=== PATIENT | female | born 2000 | race Caucasian/White ===

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

== ENCOUNTER 2023-03-06 16:22 | Emergency (ER) | payer BC, SELFPAY ==
[2023-03-06 17:05] VITALS: BP 108/60; PULSE 77; RESP 16; TEMP 37.3; O2SAT 100; BMI 20.5
--- NOTE | 2023-03-06 17:16 | DI.RAD.S_ITS ---
PROCEDURE: XR WRIST LT MIN 3V INDICATIONS: dog bite TECHNIQUE: 4 views of the wrist were acquired. COMPARISON: None. FINDINGS: Bones: No fractures or dislocations. No suspicious bony lesions. Scaphoid view: Intact. Soft tissues: No suspicious soft tissue calcifications. No radiopaque foreign body. IMPRESSION: No acute osseous abnormality. No radiopaque foreign body. Dictated by: Martín Galloway M.D. on 03/06/2023 at 19:33 Approved by: Martín Galloway M.D. on 03/06/2023 at 19:34
--- NOTE | 2023-03-06 17:16 | DI.RAD.S_ITS ---
PROCEDURE: XR HAND LT MIN 3V INDICATIONS: dog bite TECHNIQUE: 3 views of the hand(s) acquired. COMPARISON: None. FINDINGS: Bones: No fractures or dislocations. Carpal bones are normally aligned. No suspicious bony lesions. Soft tissues: No suspicious soft tissue calcifications. No radiopaque foreign body. A few small foci of suspected subcutaneous gas. IMPRESSION: No acute osseous abnormality. A few small foci of suspected subcutaneous gas. This is likely due to puncture/laceration. No radiopaque foreign body. Dictated by: Martín Galloway M.D. on 03/06/2023 at 19:34 Approved by: Martín Galloway M.D. on 03/06/2023 at 19:35
[2023-03-06] MEDS: TET,DIPH,PERTUSS(ACELL),VAC/PF 0.5 ML SYRINGE IM (18:52)
--- NOTE | 2023-03-06 19:03 | PC.NURSE ---
Pt soaking L hand in water and CHG
--- NOTE | 2023-03-06 19:04 | PC.NURSE ---
Small puncture wounds to top and palm of her L hand
--- NOTE | 2023-03-06 19:05 | ED.GENADULT ---
HPI - General Adult General Chief complaint: Extremity Injury, Upper Stated complaint: dog bite to left hand Time Seen by Provider: 03/06/23 18:57 Source: patient and family Mode of arrival: Ambulatory History of Present Illness HPI narrative: Patient is a 22-year-old female who is here for evaluation of a dog bite to she sustained to her right hand. She states that it was the family dog. The dog is up-to-date on immunizations. Related Data Previous Rx's Medication Instructions Recorded amoxicillin 875 mg-potassium 1 tab PO Q12H 10 days #20 tabs 03/06/23 clavulanate 125 mg tablet Allergies Allergy/AdvReac Type Severity Reaction Status Date / Time peanut Allergy Mild Diarrhea Verified 03/06/23 18:50 Review of Systems Constitutional Constitutional: Reports system reviewed and no additional complaints, except as documented Musculoskeletal Musculoskeletal: Reports system reviewed and no additional complaints, except as documented Integumentary/Breasts Skin/Breast: Reports system reviewed and no additional complaints, except as documented Neurologic Neurologic: Reports system reviewed and no additional complaints, except as documented Patient History Substance Use Type: marijuana Exam Initial Vital Signs Initial Vital Signs: Vital Signs Temperature 99.1 F 03/06/23 17:05 Pulse Rate 77 03/06/23 17:05 Respiratory Rate 16 03/06/23 17:05 Blood Pressure 108/60 03/06/23 17:05 Pulse Oximetry 100 03/06/23 17:05 Oxygen Delivery Method Room Air 03/06/23 17:05 Cardio Pulses: radial pulses present on the left Skin Other: Patient has multiple puncture wounds both on the dorsum and the volar aspect of the right hand and distal wrist. There is no active bleeding. All wounds are less than 1/2 cm in length. Neuro Sensory Exam: no sensory deficits noted Extrem Other: Patient does have some discomfort with flexion-extension of the left wrist. Course Orders Ordered: Discontinued Medications Amoxicillin/Clavulanate Potassium (Amoxicillin/Clav 875/125 Mg) 1 tab PO NOW ONE Stop: 03/06/23 19:09 Last Admin: 03/06/23 19:13 Dose: 1 tab Documented By: Bacitracin (Bacitracin Oint 0.9 Gm Pckt) 1 applic TOP NOW ONE Stop: 03/06/23 19:18 Last Admin: 03/06/23 19:21 Dose: 1 applic Documented By: Diphtheria/Tetanus/Acell Pertussis (Tet,Diph,Pertuss(Acell),Vac/Pf 0.5 Ml Syringe) 0.5 ml IM .ONCE ONE Stop: 03/06/23 17:18 Last Admin: 03/06/23 18:52 Dose: 0.5 ml Documented By: AMU Vital Signs Vital signs: Vital Signs - 8 hr 03/06/23 19:20 Pulse Rate 68 Respiratory Rate 16 Blood Pressure 124/58 L Pulse Oximetry 100 Oxygen Delivery Method Room Air Medical Decision Making Imaging Data Extremity x-ray #1: Radiologist's Impression: PROCEDURE:? XR HAND LT MIN 3V ? INDICATIONS:? dog bite ? TECHNIQUE:? 3 views of the hand(s) acquired.? ? COMPARISON:? None. ? FINDINGS:? ? Bones:? No fractures or dislocations.? Carpal bones are normally aligned.? No suspicious bony lesions.? ? Soft tissues:? No suspicious soft tissue calcifications.? No radiopaque foreign body.? A few small foci of suspected subcutaneous gas.? ? ? IMPRESSION:? No acute osseous abnormality. ? A few small foci of suspected subcutaneous gas.? This is likely due to puncture/laceration.? No radiopaque foreign body.? Extremity x-ray #2: Radiologist's Impression: PROCEDURE:? XR WRIST LT MIN 3V ? INDICATIONS: dog bite ? TECHNIQUE:? 4 views of the wrist were acquired.? ? COMPARISON:? None. ? FINDINGS:? ? Bones:? No fractures or dislocations.? No suspicious bony lesions.? ? Scaphoid view:? Intact. ? Soft tissues:? No suspicious soft tissue calcifications.? No radiopaque foreign body. ? IMPRESSION:? No acute osseous abnormality. ? No radiopaque foreign body.? MDM Narrative Medical decision making narrative: Tetanus was updated. X-ray shows no signs of fractures nor dislocations nor foreign body. All of the wounds located on her left hand are less than 1 cm in length and Meniere just puncture wounds. There is no active bleeding. They were irrigated here in the ER. We will start the patient on antibiotics and she was given 1st dose here in the ER and a prescription was sent to the pharmacy of her choice. Will hold on closing any these wounds because of the size in the location. Patient was given care instructions and return precautions. She expressed understanding and agreement. Discharge Plan Departure Patient Disposition: Home Clinical Impression: Dog bite Instructions: DI for Dog Bite Activity Restrictions/Additional Instructions: Please take the antibiotics as directed. You can keep the wounds covered with an antibiotic ointment and also a bandage. You can wash your hands and shower like normal. Return to the emergency department for new or worsening symptoms. Prescriptions: New amoxicillin-pot clavulanate 875-125 mg tablet 1 tab PO Q12H 10 Days Qty: 20 0RF Referrals: Rick Olivares MD [Primary Care Provider] - Stand Alone Forms: Patient Portal/API
[2023-03-06] MEDS: AMOXICILLIN/CLAV 875/125 MG 1 TAB PO (19:13)
[2023-03-06 19:20] VITALS: BP 124/58; PULSE 68; RESP 16; O2SAT 100
[2023-03-06] MEDS: BACITRACIN OINT 0.9 GM PCKT 1 APPLIC TOP (19:21)
== END 2023-03-06 19:27 | disposition home or self-care (01) ==
PROVIDERS: Emergency Provider Emergency Medicine; PCP Family Medicine
DX: S61.452A Open bite of left hand, initial encounter (principal); S61.552A Open bite of left wrist, initial encounter; W54.0XXA Bitten by dog, initial encounter; Z23 Encounter for immunization
CPT/HCPCS: 73110; 73130; 90471; 99283; 99284; 90715

== ENCOUNTER → 2024-02-20 15:04 | Outpatient (CLI) | payer OTHER, SELFPAY | LOC: CAR 15:04 | PROVIDERS: PCP Family Medicine; Referring Provider Family Medicine; Visit Provider Family Medicine | DX: R55 Syncope and collapse (principal); R42 Dizziness and giddiness; R00.0 Tachycardia, unspecified | CPT/HCPCS: 93242 ==

== ENCOUNTER → 2024-08-07 08:31 | Outpatient (CLI) | payer OTHER, SELFPAY ==
--- NOTE | 2024-08-07 08:32 | DI.US.S_ITS ---
PROCEDURE: US PELVIC COMPLETE INDICATIONS: Patient feels like IUD was shifted TECHNIQUE: Real-time scanning was performed of the pelvic organs, with image documentation. Additional endovaginal scanning was necessary due to incomplete visualization of the adnexal and endometrial structures by transabdominal scanning. COMPARISON: None. FINDINGS: Uterus: Uterus is anteverted and normal in size at 7.2 x 2.8 x 4.1 cm. The myometrium is homogeneous. The endometrium measures 4.8 mm combined thickness. Intrauterine device in appropriate position. Ovaries: The right ovary measures 2.7 x 3.3 x 2.5 cm, with a calculated ovarian volume of 11.7 cc. Collapsing simple cyst measuring 2.0 x 1.3 x 2.0 centimeters. The left ovary measures 1.8 x 2.6 x 1.1 cm, with a calculated ovarian volume of 2.7 cc. The ovaries have a normal sonographic appearance. Less than 12 follicles can be seen in each ovary. No adnexal masses are seen. Other: No pathologic free abdominal or pelvic fluid. IMPRESSION: 1. Collapsing simple cyst in the right ovary measuring 2 centimeters. 2. Intrauterine device appears appropriately position. We strive to produce accurate, complete, and clear reports of imaging services. To assist us in improving patient care, this report was composed using standard report templates and voice recognition software. Therefore, it may contain abnormal punctuation, insertions and/or omissions. Occasional wrong-word or sound-alike substitutions may occur. Though we review the report and make efforts to correct it, we do recommend that the report be read carefully in proper context to recognize any text inaccuracies. Dictated by: Trey Mares M.D. on 08/07/2024 at 11:54 Approved by: Trey Mares M.D. on 08/07/2024 at 11:57
== END ==
PROVIDERS: PCP Family Medicine; Referring Provider Obstetrics & Gynecology; Visit Provider Obstetrics & Gynecology
DX: N83.291 Other ovarian cyst, right side (principal); Z30.431 Encounter for routine checking of intrauterine contraceptive device
CPT/HCPCS: 76830; 76856